=== PATIENT | male | born 1955 | race Caucasian/White ===

== ENCOUNTER 2016-07-26 10:42 | Inpatient (IN) | payer OTHER ==
[~2016-07-26] VITALS: Ht 172.7 cm; Wt 57.0 kg
[2016-07-26] VITALS (10 sets, daily range): BP systolic 67–110; BP diastolic 39–88
[~2016-07-26 10:42] MED LIST: CILOSTAZOL50 MG PO; Habitrol,Nicoderm CQ TD; KEFLEX500 MG PO; LO-DOSE ASPIRIN81 M1 PO; METHOTREXATE2.5 MG PO; METOPROLOL TART25 MG PO; Neutra-Phos,Phos-Nak PO; OMEPRAZOLE20 MG PO; OXYCODONE HCL5 MG PO; PERCOCET 5/31 TABLET PO; PREDNISONE5 MG PO; SYMBICORT60 INHALAT IH; THERAGRAN1 TABLET PO; TRAZODONE HCL50 MG PO; predniSONE PO
[2016-07-26 11:09] LABS: EOSINOPHIL (%) 0.3 % (0-5); HEMATOCRIT 43.4 % (38.0-50.0); IMMATURE GRANULOCYTE (%) 0.6 % (0.0-0.7); IMMATURE GRANULOCYTE COUNT 0.1 K/uL; INSTRUMENT ABS NEUTROPHIL CT 10.4 K/uL; LYMPHOCYTE COUNT 1.2 K/uL (1.0-2.8); MCH 31.5 PG (29.0-34.0); MCHC 33.6 G/DL (30.0-36.0); MEAN PLAT.VOLUME 11.2 uM^3 (9.0-12.4); MONOCYTE (%) 5.1 % (3-12); MONOCYTE COUNT 0.6 K/uL (0-0.8); NEUTROPHIL (%) 84.3 % (45-76); NEUTROPHIL COUNT 10.4 K/uL (1.8-6.4); PLATELET COUNT 230 K/uL (156-360); RBC DIS.WIDTH-CV 14.6 % (11.8-14.6); RED BLOOD COUNT 4.63 M/uL (4.00-5.50); WHITE BLOOD COUNT 12.3 K/uL (4.1-10.2)
[2016-07-26 11:12] LABS: MCV 93.7 FL (86-99)
[2016-07-26 11:20] LABS: PROTHROMBIN TIME 10.6 (9.2-11.2); PTT 25.5 (25-32)
[2016-07-26 11:25] LABS: AMYLASE 66 IU/L (1-118); CHLORIDE 107 mEq/L (99-109); SODIUM 139 mEq/L (136-147)
[2016-07-26 11:27] LABS: GLUCOSE 152 mg/dL (70-99)
[2016-07-26 11:28] LABS: ANION GAP 13 MEQ/L (2-14)
[2016-07-26 11:30] LABS: SERUM ETHYL ALCOHOL < 10 mg/dL
[2016-07-26 11:31] LABS: GFR ESTIMATE (CALCULATED) > 59 mL/min/; POTASSIUM 3.4 mEq/L (3.7-5.4); TROPONIN-I 3.62 ng/mL (0.0-0.30)
[2016-07-26 11:32] LABS: TROP-I INTERPRETATION POSITIVE; UREA NITROGEN (BUN) 13 mg/dL (9-23)
[2016-07-26 11:34] LABS: LIPASE 9 U/L (1.0-51.0)
[2016-07-26 15:33] LABS: METH RESISTANT S AUREUS PCR NEGATIVE (NEGATIVE)
[2016-07-26 15:51] LABS: PROBE CHECK PASS; SPECIMEN PROCESSING CONTROL PASS
[2016-07-26 19:12] LABS: CK-MB 229.1 ng/mL (0.0-4.9); TROP-I INTERPRETATION POSITIVE; TROPONIN-I 106.16 ng/mL (0.0-0.30)
[2016-07-26 19:16] LABS: HDL CHOLESTEROL 41 MG/DL (Desirable>=40); LDL CHOLESTEROL 69 mg/dL (Desirable<100); NON-HDL CHOLESTEROL 98 mg/dL (Desirable<160); TOTAL CHOLESTEROL 139 mg/dL (Desirable<200); TOTAL CK 1689 IU/L (1-294); TRIGLYCERIDES 144 MG/DL (Normal: <150)
[2016-07-26 19:17] LABS: CREATINE KINASE 1689 IU/L (1-294)
[2016-07-27] VITALS (20 sets, daily range): BP systolic 73–101; BP diastolic 45–75
[2016-07-27 00:33] LABS: TROP-I INTERPRETATION POSITIVE
[2016-07-27 05:38] LABS: EOSINOPHIL (%) 0.1 % (0-5); HEMATOCRIT 36.2 % (38.0-50.0); IMMATURE GRANULOCYTE (%) 0.3 % (0.0-0.7); INSTRUMENT ABS NEUTROPHIL CT 7.1 K/uL; LYMPHOCYTE COUNT 0.8 K/uL (1.0-2.8); MCH 32.8 PG (29.0-34.0); MCHC 33.7 G/DL (30.0-36.0); MCV 97.3 FL (86-99); MEAN PLAT.VOLUME 11.8 uM^3 (9.0-12.4); MONOCYTE (%) 8.7 % (3-12); MONOCYTE COUNT 0.8 K/uL (0-0.8); NEUTROPHIL (%) 81.2 % (45-76); NEUTROPHIL COUNT 7.1 K/uL (1.8-6.4); PLATELET COUNT 195 K/uL (156-360); RBC DIS.WIDTH-CV 14.7 % (11.8-14.6); RBC DIS.WIDTH-SD 51.7 % (39-53); RED BLOOD COUNT 3.72 M/uL (4.00-5.50); WHITE BLOOD COUNT 8.7 K/uL (4.1-10.2)
[2016-07-27 05:57] LABS: ANION GAP 8 MEQ/L (2-14); CHLORIDE 113 MEQ/L (99-109); GFR ESTIMATE (CALCULATED) > 59 mL/min/; POTASSIUM 3.6 MEQ/L (3.7-5.4); SAMPLE HEMOLYSIS CHECK 0; SAMPLE ICTERIC CHECK 0; SAMPLE LIPEMIA CHECK 0; SODIUM 141 MEQ/L (136-147); UREA NITROGEN (BUN) 9 mg/dL (9-23)
[2016-07-27 05:58] LABS: GLUCOSE 80 mg/dL (70-99)
[2016-07-27 06:07] LABS: TROP-I INTERPRETATION POSITIVE; TROPONIN-I 66.06 ng/mL (0.0-0.30)
[2016-07-27 07:15] LABS: CK-MB 134.5 ng/mL (0.0-4.9)
[2016-07-27 08:08] LABS: CREATINE KINASE 1346 IU/L (1-294)
[2016-07-27 09:24] LABS: TOTAL CK 1346 IU/L (1-294)
[2016-07-27 18:54] LABS: CREATINE KINASE 966 IU/L (1-294); TOTAL CK 966 IU/L (1-294); TROP-I INTERPRETATION POSITIVE; TROPONIN-I 32.15 ng/mL (0.0-0.30)
[2016-07-27 22:53] LABS: CK-MB 58.9 ng/mL (0.0-4.9)
[2016-07-28] VITALS (12 sets, daily range): BP systolic 74–130; BP diastolic 42–71
[2016-07-28 05:02] LABS: CHLORIDE 104 mEq/L (99-109); POTASSIUM 3.8 mEq/L (3.7-5.4); SODIUM 135 mEq/L (136-147)
[2016-07-28 05:04] LABS: GLUCOSE 85 mg/dL (70-99)
[2016-07-28 05:06] LABS: ANION GAP 10 MEQ/L (2-14)
[2016-07-28 05:08] LABS: GFR ESTIMATE (CALCULATED) > 59 mL/min/
[2016-07-28 05:09] LABS: UREA NITROGEN (BUN) 10 mg/dL (9-23)
[2016-07-28 05:11] LABS: CREATINE KINASE 666 IU/L (1-294); TOTAL CK 666 IU/L (1-294)
[2016-07-28 05:20] LABS: CK-MB 16.2 ng/mL (0.0-4.9)
[2016-07-28] MEDS ORDERED: NITROSTAT0.4 MG SL (12:10)
[2016-07-28] MEDS ORDERED: CLOPIDOGREL75 MG PO (12:10)
[2016-07-28] MEDS ORDERED: LISINOPRIL2.5 MG PO (12:10)
[2016-07-28] MEDS ORDERED: ATORVASTATIN CA40 MG PO (12:10)
[2016-07-28] MEDS ORDERED: LOPRESSOR25 MG PO (12:10)
== END 2016-07-28 16:40 | disposition home or self-care (01) | DRG 247 ==
LOC: EME 10:42 → CATH 12:35 → EME 12:35 → 2SOUTH 12:40 → 4WEST 12:40
PROVIDERS: Emergency Medicine; Internal Medicine Interventional Cardiology
DX: I21.19 ST elevation (STEMI) myocardial infarction involving other coronary artery of inferior wall (principal); I48.0 Paroxysmal atrial fibrillation; R55 Syncope and collapse; F41.9 Anxiety disorder, unspecified; I95.9 Hypotension, unspecified; I10 Essential (primary) hypertension; I25.10 Atherosclerotic heart disease of native coronary artery without angina pectoris; I34.0 Nonrheumatic mitral (valve) insufficiency; E78.5 Hyperlipidemia, unspecified; J44.9 Chronic obstructive pulmonary disease, unspecified; I73.9 Peripheral vascular disease, unspecified; K70.30 Alcoholic cirrhosis of liver without ascites; K21.9 Gastro-esophageal reflux disease without esophagitis; M06.9 Rheumatoid arthritis, unspecified; F10.21 Alcohol dependence, in remission; Z79.82 Long term (current) use of aspirin; Z79.02 Long term (current) use of antithrombotics/antiplatelets; Z87.891 Personal history of nicotine dependence
CPT/HCPCS: 36415; 80048; 80048 91; 80053; 80061; 81003; 82150; 82306 GA; 82550; 82550 91; 82553; 83036; 83036 GA; 83690; 84439; 84443; 84484; 85025; 85347; 85610; 85730; 86900; 86901; 87641; 93005; 99281; 99285; C1725; C1769; C1874; C1887; C1894; G0480; J0153; J0461; J1160; J1644; J2250; J2270; J2405; J3010; J3246; J3480; J7030; J7512; J8610

== ENCOUNTER 2017-06-29 13:55 | Emergency (ER) | payer OTHER ==
[~2017-06-29] VITALS: Ht 167.6 cm; Wt 56.8 kg
[~2017-06-29 13:55] MED LIST changes: +ATORVASTATIN CA40 MG PO; +CLOPIDOGREL75 MG PO; +LISINOPRIL2.5 MG PO; +LOPRESSOR25 MG PO; +NITROSTAT0.4 MG SL
[2017-06-29] MEDS ORDERED: PERCOCET 5/31 TABLET PO (17:23)
[2017-06-29] MEDS ORDERED: CILOSTAZOL100 MG PO (17:23)
[2017-06-29] MEDS ORDERED: KEFLEX500 MG PO (17:23)
[2017-06-29 17:45] VITALS: BP 129/91
== END 2017-06-29 17:51 | disposition home or self-care (01) ==
LOC: EXP 13:55 → EME 13:55 → EXP 17:51
DX: I70.202 Unspecified atherosclerosis of native arteries of extremities, left leg (principal); L97.519 Non-pressure chronic ulcer of other part of right foot with unspecified severity; L97.529 Non-pressure chronic ulcer of other part of left foot with unspecified severity; Z91.19 Patient's noncompliance with other medical treatment and regimen; M06.9 Rheumatoid arthritis, unspecified; J44.9 Chronic obstructive pulmonary disease, unspecified; K74.60 Unspecified cirrhosis of liver; Z86.718 Personal history of other venous thrombosis and embolism; Z79.82 Long term (current) use of aspirin; Z87.891 Personal history of nicotine dependence
CPT/HCPCS: 93925; 99281; 99283

== ENCOUNTER → 2017-07-07 | Outpatient (CLI) | payer MEDICARE ==
[~2017-07-07] MED LIST changes: +CILOSTAZOL100 MG PO
== END | disposition home or self-care (01) ==
LOC: CDC 13:05
DX: Z01.810 Encounter for preprocedural cardiovascular examination (principal); I70.25 Atherosclerosis of native arteries of other extremities with ulceration; I49.3 Ventricular premature depolarization
CPT/HCPCS: 93000